=== PATIENT | female | born 1975 | race Two or more races ===

== ENCOUNTER 2021-11-22 09:18 | Emergency (ER) | payer OTHER ==
[~2021-11-22] VITALS: Ht 160 cm; Wt 63.0 kg
[2021-11-22] MEDS ORDERED: VALSARTAN-HCTZ1 EAC3 PO (09:28)
[2021-11-22] MEDS ORDERED: CIPRO500 MG PO (09:29)
== END 2021-11-22 10:13 | disposition home or self-care (01) ==
LOC: ER 09:18
DX: H60.392 Other infective otitis externa, left ear (principal)

== ENCOUNTER 2021-11-26 20:38 | Inpatient (IN) | payer OTHER ==
[~2021-11-26] VITALS: Ht 152.4 cm; Wt 62.6 kg
[~2021-11-26 20:38] MED LIST: CIPRO500 MG PO; VALSARTAN-HCTZ1 EAC3 PO
[2021-11-28] MEDS ORDERED: PHENTERMINE H37.5 M1 (13:37)
[2021-11-28] MEDS ORDERED: METFORMIN HCL500 M1 (13:37)
== END 2021-12-01 21:12 | disposition home or self-care (01) | DRG 156 ==
LOC: ER 20:38 → MEDI 11-27 04:55
PROVIDERS: ADMIT Internal Medicine; ATTEND Internal Medicine
PROC: BN25ZZZ Computerized Tomography (CT Scan) of Facial Bones (ICD-10-PCS; principal; 2021-11-27)
PROC: B030YZZ Magnetic Resonance Imaging (MRI) of Brain using Other Contrast (ICD-10-PCS; 2021-11-27)
PROC: BW24YZZ Computerized Tomography (CT Scan) of Chest and Abdomen using Other Contrast (ICD-10-PCS; 2021-11-30)
DX: H60.12 Cellulitis of left external ear (principal); G51.0 Bell's palsy; H60.392 Other infective otitis externa, left ear; I10 Essential (primary) hypertension
CPT/HCPCS: 70552